=== PATIENT | female | born 1960 | race Caucasian/White ===

== ENCOUNTER 2020-11-25 07:28 | Inpatient (IN) | payer BC ==
[~2020-11-25] VITALS: Ht 167.6 cm; Wt 50.0 kg
[2020-11-25] MEDS ORDERED: mag hydrox/Alum hydrox/simeth 30ml oral suspension PO PRN (14:25)
[2020-11-25] MEDS ORDERED: HYDROcodone/acetaminophen 10/325mg tab PO PRN (14:25)
[2020-11-25] MEDS ORDERED: acetaminophen 325mg tablet PO PRN ×2 (14:25)
[2020-11-25] MEDS ORDERED: magnesium hydroxide 30ml (MOM) UD suspension PO PRN (14:25)
[2020-11-25] MEDS ORDERED: HYDROcodone/acetaminophen 5mg/325mg tablet PO PRN (14:25)
[2020-11-25] MEDS ORDERED: ondansetron/PF 4mg/2ml inj IV PRN (14:25)
[2020-11-25] MEDS ORDERED: morphine 2 MG/ML inj. syringe IV PRN (14:25)
[2020-11-25 15:00] LABS: BASOPHILS % (AUTO) 0.1 % (0-1); EOSINOPHILS % (AUTO) 0 % (0-6); HEMATOCRIT 37.1 % (35.0-45.0); HEMOGLOBIN 12.6 g/dl (12.0-16.0); LYMPHOCYTES # (AUTO) 0.7 X10'3 (1.1-4.8); LYMPHOCYTES % (AUTO) 9.7 % (21-51); MEAN CORPUSCULAR HEMOGLOBIN 31.2 PG (27.0-31.0); MEAN CORPUSCULAR HGB CONC 33.9 g/dL (33.0-36.5); MEAN CORPUSCULAR VOLUME 91.9 FL (78-98); MEAN PLATELET VOLUME 6.9 FL (7.4-10.4); MONOCYTES # (AUTO) 0.8 X10'3 (0-0.9); MONOCYTES % (AUTO) 10.1 % (2-12); NEUTROPHILS # (AUTO) 6.2 X10'3 (1.8-7.7); NEUTROPHILS % (AUTO) 80.1 % (42-75); PLATELET COUNT 335 X10'3 (140-440); RED BLOOD COUNT 4.03 X10'6 (4.20-5.60); RED CELL DISTRIBUTION WIDTH 14.5 % (11.5-14.5); WHITE BLOOD COUNT 7.7 X10'3 (4.5-11.0)
[2020-11-25 15:14] LABS: D-DIMER 1.12 MG/L FEU (0-0.50)
[2020-11-25] MEDS ORDERED: TOPI200T16 PO (15:19)
[2020-11-25] MEDS ORDERED: DOXY100T2 PO (15:19)
[2020-11-25] MEDS ORDERED: SUMA100T16 PO (15:19)
[2020-11-25 15:36] LABS: ALANINE AMINOTRANSFERASE 21 U/L (12-78); ALBUMIN 2.3 G/DL (3.4-5.0); ALBUMIN/GLOBULIN RATIO 0.6 (1.1-1.5); ALKALINE PHOSPHATASE 57 IU/L (46-116); ANION GAP 11 (8-16); ASPARTATE AMINO TRANSFERASE 28 U/L (10-37); BILIRUBIN,TOTAL 0.3 MG/DL (0.1-1.0); BLOOD UREA NITROGEN 16 MG/DL (7-18); BUN/CREATININE RATIO 25.8 (6.6-38.0); C-REACTIVE PROTEIN 4.19 MG/DL (0.0-0.5); CALCIUM 7.4 MG/DL (8.5-10.1); CHLORIDE 111 MMOL/L (99-107); CREATININE 0.62 MG/DL (0.40-0.90); GLUCOSE 116 MG/DL (70-104); SODIUM 144 MMOL/L (135-145); TOTAL CARBON DIOXIDE 21.8 MMOL/L (24-32); TOTAL PROTEIN 5.9 G/DL (6.4-8.2); eGFR > 90 ML/MIN
[2020-11-25 15:44] LABS: PHOSPHORUS 1.2 MG/DL (2.3-4.5); POTASSIUM 2.9 MMOL/L (3.5-5.1)
--- NOTE | 2020-11-25 16:04 | NUR ---
Dr. Germain paged: Trinity Vargas Covid 3B: Critical K+ 2.9, Phos 1.2. Joe [id number]
[2020-11-25] MEDS ORDERED: potassium Cl 20 mEq SR tablet PO PRN (16:35)
[2020-11-25] MEDS ORDERED: magnesium 2GM in 50ml NS 50 ML IV PRN (16:35)
[2020-11-25] MEDS ORDERED: magnesium Cl slow-release 64mg tablet PO PRN (16:35)
[2020-11-25] MEDS ORDERED: magnesium 4gm in 100ml NS 100 ML IV PRN (16:35)
[2020-11-25] MEDS ORDERED: potassium Cl 40MEQ/1/2NS 520ml 520 ML IV PRN (16:35)
[2020-11-25] MEDS ORDERED: SUMAtriptan 25 MG tablet PO PRN (17:15)
[2020-11-25] MEDS ORDERED: dexamethasone sod phosphate 10mg/ml inj PO STA (17:37)
[2020-11-25] MEDS ORDERED: dexamethasone sod phosphate 10mg/ml inj IV STA (17:48)
--- NOTE | 2020-11-25 18:26 | NUR ---
Patient in room COVID 03. I have received report from CAROLANN Reyes and had the opportunity to ask questions and assume patient care.
[2020-11-25] MEDS ORDERED: enoxaparin 50mg/0.5ml (from 3ml vial) syringe SUBCUT ONE (18:30)
[2020-11-25 20:00] VITALS: BP 117/70
[2020-11-25] MEDS: docusate sod 100mg capsule PO SCH (20:00)
[2020-11-25] MEDS: K and/or MAG REPLACEMENT MC SCH (20:00)
[2020-11-25] MEDS: potassium Cl 20 mEq SR tablet PO PRN (20:49)
[2020-11-25] MEDS: loperamide 2mg capsule PO PRN (20:50)
[2020-11-26] VITALS: BP 114/61
[2020-11-26] MEDS: potassium Cl 20 mEq SR tablet PO PRN (00:42)
[2020-11-26] MEDS: Neutra Phos packet PO SCH ×3 (00:42→12:52)
[2020-11-26] MEDS: topiramate 100mg tablet PO SCH ×2 (00:42→08:00)
--- NOTE | 2020-11-26 03:35 | NUR ---
Patient has been resting comfortably in bed for the majority of the night with a couple of short trips to the [facility] needs. Patient uses her call ortez appropriately and is hooked up to a monitor for continuous VS monitoring.
[2020-11-26 06:00] VITALS: BP 105/71
[2020-11-26] MEDS ORDERED: normal saline 1000ml 1,000 ML IVB ONE (06:00)
--- NOTE | 2020-11-26 06:00 | NUR ---
Patient in room COVID 03. I have received report from Marie VUONG and had the opportunity to ask questions and assume patient care.
--- NOTE | 2020-11-26 06:03 | NUR ---
Pt stool appears black and more liquid. notified and made aware that she has hx of factor 5 [place]. Rec'd order to DC lovenox, start protonix gtt, 1L bolus, type and screen, occult stool, cbc.
[2020-11-26] MEDS: loperamide 2mg capsule PO PRN (06:10)
--- NOTE | 2020-11-26 06:45 | NUR ---
Problems reprioritized. Patient report given, questions answered & plan of care reviewed with CAROLANN Ring.
[2020-11-26] MEDS ORDERED: dexamethasone 4mg tablet PO SCH (08:00)
[2020-11-26] MEDS: K and/or MAG REPLACEMENT MC SCH (08:00)
[2020-11-26] MEDS: docusate sod 100mg capsule PO SCH (08:00)
[2020-11-26] MEDS: pantoprazole 40MG/NS 100ML BAG 100 ML IV SCH ×2 (08:14→11:00)
[2020-11-26 08:41] LABS: BASOPHILS % (AUTO) 0.1 % (0-1); EOSINOPHILS % (AUTO) 0 % (0-6); HEMATOCRIT 32.4 % (35.0-45.0); HEMOGLOBIN 11.2 g/dl (12.0-16.0); LYMPHOCYTES # (AUTO) 0.5 X10'3 (1.1-4.8); LYMPHOCYTES % (AUTO) 8.7 % (21-51); MEAN CORPUSCULAR HEMOGLOBIN 31.4 PG (27.0-31.0); MEAN CORPUSCULAR HGB CONC 34.6 g/dL (33.0-36.5); MEAN CORPUSCULAR VOLUME 90.9 FL (78-98); MONOCYTES # (AUTO) 0.7 X10'3 (0-0.9); MONOCYTES % (AUTO) 10.4 % (2-12); NEUTROPHILS # (AUTO) 5.1 X10'3 (1.8-7.7); NEUTROPHILS % (AUTO) 80.8 % (42-75); PLATELET COUNT 321 X10'3 (140-440); RED BLOOD COUNT 3.56 X10'6 (4.20-5.60); RED CELL DISTRIBUTION WIDTH 14.2 % (11.5-14.5); WHITE BLOOD COUNT 6.3 X10'3 (4.5-11.0)
[2020-11-26 08:54] LABS: ALBUMIN 2.3 G/DL (3.4-5.0); ANION GAP 11 (8-16); BLOOD UREA NITROGEN 26 MG/DL (7-18); BUN/CREATININE RATIO 41.9 (6.6-38.0); CALCIUM 6.9 MG/DL (8.5-10.1); CHLORIDE 116 MMOL/L (99-107); CREATININE 0.62 MG/DL (0.40-0.90); GLUCOSE 89 MG/DL (70-104); POTASSIUM 3.8 MMOL/L (3.5-5.1); SODIUM 148 MMOL/L (135-145); TOTAL CARBON DIOXIDE 21.1 MMOL/L (24-32); eGFR > 90 ML/MIN
[2020-11-26] MEDS ORDERED: DEC4T PO (10:19)
--- NOTE | 2020-11-26 10:29 | NUR ---
O2 Sat at rest on room air:___% If below 89%: Recovery O2 Sat at rest on ___LPM:__92_%:__2L_% via____nasal cannula_ No further documentation is necessary. If O2 Sat did not drop below 89% on room air,ambulate patient on room air. O2 Sat while ambulating on room air:_84__% Recovery O2 Sat while ambulating on ___LPM:___% No further documentation is necessary. If patient does not drop below 89% while ambulating, he/she does not qualify for home O2.
--- NOTE | 2020-11-26 10:48 | NUR ---
O2 Sat at rest on room air:__94_% If below 89%: Recovery O2 Sat at rest on ___LPM:___%:___% via (mask/nasal cannula, etc..) No further documentation is necessary. If O2 Sat did not drop below 89% on room air,ambulate patient on room air. O2 Sat while ambulating on room air:__84_% Recovery O2 Sat while ambulating on _93__LPM:_2__% No further documentation is necessary. If patient does not drop below 89% while ambulating, he/she does not qualify for home O2.
[2020-11-26 11:00] VITALS: BP 113/73
[2020-11-26 12:04] LABS: OCCULT BLOOD STOOL POSITIVE (Neg)
--- NOTE | 2020-11-26 12:14 | NUR ---
Low BMI screen: Pt BMI 17.8. however pending scaled wt this admit w/ no prior wt hx, significant weakness, edema, or wounds per EMR. Will monitor for nutrition intervention needs. Addendum: 11/26/20 at [address] Amended: Links added.
[2020-11-26] MEDS ORDERED: APIX5TAB3 PO (13:49)
--- NOTE | 2020-11-26 15:18 | NUR ---
Patient is stable for discharge per Dr. Germain. DC'd PIV with canula intact, DC'd bedside mobile. Patients portable 02 condenser was delivered and she verbalized understanding and performed return demonstration on how to operate the unit. Patient verbalized understanding of the discharge instructions along with new medication regimen. She was taken to the lobby by [facility] for transport home by her spouse.
== END 2020-11-26 14:45 | disposition home or self-care (01) | DRG 177 ==
LOC: UNDOADMIN 12:40 → COVID IP 12:40
PROVIDERS: ADMIT Internal Medicine; ATTEND Internal Medicine
DX: U07.1 COVID-19 (principal); J12.82 Pneumonia due to coronavirus disease 2019; J96.01 Acute respiratory failure with hypoxia; D68.51 Activated protein C resistance; E83.39 Other disorders of phosphorus metabolism; E87.6 Hypokalemia; Z79.01 Long term (current) use of anticoagulants; Z83.2 Family history of diseases of the blood and blood-forming organs and certain disorders involving the immune mechanism; Z90.710 Acquired absence of both cervix and uterus; Z98.891 History of uterine scar from previous surgery
CPT/HCPCS: 36415; 80048; 80053; 82272; 83880; 84100; 84145; 85025; 85379; 86140; 86885; 86900; 86901; C9113; G0378; J1100; J1650; J7030